=== PATIENT | female | born 1965 | race Caucasian/White ===

== ENCOUNTER 2018-02-11 05:25 | Day surgery (SDC) | payer BC ==
[~2018-02-11] VITALS: Ht 162.6 cm; Wt 74.8 kg
--- NOTE | ~2018-02-11 | O ---
[facility] [place] [address] OPERATIVE REPORT Name: JO-ANN ORELLANA Room #: DEP [facility] [place] M..#: [id number] Admission: 02/11/18 Attend Phys: Pk Lopes MD Discharge: 02/11/18 Date of : 65 Report #: [id number] THIS REPORT FOR: //name// CC: Viral Lopes DATE OF SERVICE: 02/11/2018 PREOPERATIVE DIAGNOSIS: Incisional hernia. POSTOPERATIVE DIAGNOSIS: Complex incisional hernia with a main defect and then a smaller hernia at the umbilicus inferior to the main defect, and then a third hernia located superior to the main defect. PROCEDURE PERFORMED: Open repair of complex incisional hernia with a large Ventralex patch, then a small Ventralex patch placed in a more superior position. ANESTHESIA: General LMA. COMPLICATIONS: None. BLOOD LOSS: 15 mL. SURGEON: Pk Lopes M.D. DESCRIPTION OF PROCEDURE: With the patient under general anesthesia, timeout was performed. The patient did receive IV antibiotics. Abdomen was prepped and draped in a sterile fashion. A 0.25% Marcaine was used to anesthetize the skin and subcutaneous tissue. Approximately 4 cm incision was made. Cautery was used for hemostasis. There was a large amount of properitoneal fat that herniated through along with hernia sac. I did remove some of the properitoneal fat. A couple of places the hernia sac was entered and the hernia sac was then closed with 4-0 PDS. The remaining properitoneal fat and the hernia sac was then reduced in the properitoneal space. The sac and the properitoneal fat was free from the fascia edges. The fascial edge was about 3 cm oval shape. Transversely oriented. The properitoneal dissection was then performed. The tissue was freed without difficulty away from the hernia defect. When I dissected anterior in the subcutaneous tissue, lifting the umbilical skin off, there was a hernia found at the level of the umbilicus, which was just below the main defect. I just cleaned off. The low bridge of fascial tissue was removed connecting the two fascia defects. I then dissected the properitoneal space inferiorly and met some thickened fibrous tissue. This was probably secondary to her . This was able to be dissected free. Once the properitoneal space was opened up, a large Ventralex patch, which was a little over 8 cm was placed in the properitoneal space. The fascia was quite thin all around. I [address] [address] OPERATIVE REPORT Name: JO-ANN ORELLANA Room #: DEP [facility] [place] M..#: [id number] Admission: 02/11/18 Attend Phys: Pk Lopes MD Discharge: 02/11/18 Date of : 65 Report #: [id number] decided not to sew the fascia together. The strap was then sewn to the inferior aspect of the fascia defect. This allowed the mesh to be position more inferiorly because of the 2 hernias that I identified. The rest of the mesh was sutured to the edges of the fascia. I was getting ready to sew the subcutaneous tissue, I identified another lobulated fat, which appeared to be not subcutaneous fat. This was more superiorly located. The base of this fat was about 2 cm above the superior edge of the initial fascia defect. Once I got down to the bottom, I realized there was another hole here. This was more of a slit like eye defect measuring about 1 cm in size. The fat was dissected free from this and then cauterized, mostly removed. Then, I noticed some bleeding from the area that was cauterized. I did try to cauterize this, but I found that difficult because of the limited view. I then opened the fascia transversely more and with that I was able to isolate the fat that was bleeding and cauterized it. The upper edge of the mesh was located at this edge of the fascia defect superiorly. The properitoneal space was again opened up here. A small Ventralex patch measuring over 4 cm [place] was then placed under this fascia defect. Slight overlap between the lower edge of this mesh and the upper edge of the initial mesh. Both mesh opened up well. The fascia defect at this site was closed incorporating the strap of the Ventralex patch using 0 Prolene suture. Two separate horizontal mattress sutures were used. The subcutaneous tissue was closed with 4-0 PDS, skin with 5-0 PDS. Dermabond was applied, 4 x 4 and a moderate pressure dressing and Op-Site was applied. The patient was awakened and taken to recovery room. By: [id number] Pk Lopes MD /nt
--- NOTE | ~2018-02-11 | H ---
[facility] [place] [address] HISTORY AND PHYSICAL Name: JO-ANN ORELLANA Room #: PRE [facility] M.R.#: [id number] Admission: Attend Phys: kP Lopes MD Discharge: Date of : 65 Report #: [id number] THIS REPORT FOR: //name// CC: Viral Lopes DATE OF SERVICE: 02/11/2018 PREOPERATIVE DIAGNOSIS: Incisional hernia. HISTORY OF PRESENT ILLNESS: The patient is a 52-year-old who had a laparoscopic oophorectomy in 2000. Six days ago, the patient was picking up some tools and noticed a bulge in her incision site. This is getting larger and uncomfortable. The patient was recently diagnosed with common immune deficiency and hypothyroid. She has gained about 20 pounds. Since then, the bloating has gotten worse. No nausea or vomiting. The patient does have history of constipation and straining. No difficulty urinating. No chronic cough or sneezing. The patient when she puts her clothes/pants on, it pinches in the area. The patient was found on exam to have a hernia located at the laparoscopic port site. She is recommended to have it repaired. The patient is here for repair of incisional hernia from laparoscopic port site. PAST MEDICAL HISTORY: The patient has common immune deficiency, hypothyroid, high blood pressure, and elevated cholesterol. MEDICATIONS: The patient's medications are Synthroid, metoprolol, benazepril, Lipitor, methotrexate on a weekly basis, Plaquenil, corticosteroid half a tablet 2.5 mg every other day, Aleve and Tylenol. PAST SURGICAL HISTORY: She had a trigger release of the thumb in 2009; ovarian cystectomy laparoscopic in 2000, bone fusion at C4-C5 in 1974, hand surgery in 2017. The patient had in 1986. FAMILY HISTORY: Unremarkable. SOCIAL HISTORY: The patient works as a private duty nurse. She does not smoke. She drinks two glasses of white wine a week. REVIEW OF SYSTEMS: The patient has a sore throat with postnasal drip. Upper lung crackles. Episodes of SVT. The patient has common variable immune deficiency diagnosed in 1982. She sees Dr. Webb for joint pain and electroencephalograph technologist for joint pain. The patient has a foot surgery coming up for the left great toe bunion. PHYSICAL EXAMINATION: GENERAL: The patient is a well-nourished female in no acute distress. [address] [address] HISTORY AND PHYSICAL Name: JO-ANN ORELLANA Room #: PRE [facility] M.R.#: [id number] Admission: Attend Phys: Pk Lopes MD Discharge: Date of : 65 Report #: [id number] HEENT: Pupils react to light. Extraocular muscles are intact. Oropharynx is clear. NECK: Soft and supple, no masses. LUNGS: Clear to auscultation. HEART: Regular rate and rhythm. No murmur or gallop. ABDOMEN: She does have a hernia located near the umbilicus. It is partially reducible. No abdominal mass or ascites. EXTREMITIES: No cyanosis, clubbing or edema. IMPRESSION AND PLAN: The patient with an incisional hernia, symptomatic. This is from her laparoscopic left oophorectomy. Because of symptomatic nature, the patient is recommended to have the hernia repair. The patient is brought in for repair of the hernia. We will do this in an open fashion and with use of mesh. The patient understands the procedure, the risk of bleeding, infection, mesh infection and hernia recurrence was discussed. The patient wished to proceed. By: [id number] Pk Lopes MD /nt
[~2018-02-11 05:25] MED LIST: ALEVE220 MG PO; B COMPLEX1 EACH PO; BENICAR HCT 201 EACH PO; CYMBALTA60 MG PO; FISH OIL 1,001000 M2 PO; FOLIC ACID1 MG PO; HYDROXYCHLOROQ200 M1 PO; IMITREX 25 MG T25 MG PO; IMITREX100 MG PO; LIPITOR40 MG PO; MELATONIN1 MG PO; METHOTREXATE 22.5 MG PO; PREDNISONE 5 MG5 M1 PO; SIMVASTATIN20 MG PO; SYNTHROID25 MC1 PO; TOPROL XL100 MG PO; TURMERIC500 M2 PO; TYLENOL EXTRA500 MG PO; VITAMIN D31000 UNI2 PO
[2018-02-11 08:14] LABS: HEMATOCRIT 38.6 % (37.0-47.0); HEMOGLOBIN 12.7 gm/dL (12.0-15.0); MCH 32.8 pg (26.0-34.0); MCHC 32.9 g/dL (28.0-37.0); MCV 99.5 fL (80.0-100.0); RBC 3.88 mil/uL (4.20-5.00); RDW 15.6 % (10.5-14.5); WBC 7.3 thou/uL (4.0-11.0)
[2018-02-11 08:22] VITALS: BP 145/102
[2018-02-11] MEDS ORDERED: NORCO 5-325 TA1 EACH PO (11:07)
[2018-02-11 11:28] VITALS: BP 145/102
== END 2018-02-11 12:08 | disposition home or self-care (01) ==
LOC: OR 05:25 → TBA 05:26 → OR 12:08
PROVIDERS: Surgery
DX: K43.2 Incisional hernia without obstruction or gangrene (principal); K42.9 Umbilical hernia without obstruction or gangrene; E03.9 Hypothyroidism, unspecified; I10 Essential (primary) hypertension; E78.00 Pure hypercholesterolemia, unspecified; Z79.899 Other long term (current) drug therapy; Z98.890 Other specified postprocedural states
CPT/HCPCS: 50010; 50101; 50119; 50386; 50403; 50621; 54118; 56525; 56526; 62110; 62900; 64037; 70005